=== PATIENT | male | born 1985 | race Caucasian/White ===

== ENCOUNTER 2025-05-01 12:36 | Emergency (ER) | payer OTHER, SELFPAY ==
[2025-05-01 12:38] VITALS: BP 135/97
--- NOTE | 2025-05-01 15:00 | ED.GENMED ---
History of Present Illness
General
Chief Complaint: Musculo-Skeletal Complaint
Source: patient
Exam Limitations: none
Time Seen by Provider: 05/01/25 14:24
Nursing documentation reviewed up to this point in time: agreed with
History of Present Illness
History of Present Illness:
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 He reports last week he leaned over a walking escalator to get something and leaned his left rib against the escalator ledge. He did not feel any pain at that time however since then
felt sore to the left anterior rib.. Discomfort Was improving however today he did have some increased pain with movement slight pain with deep breath. He denies her feeling short of breath. He does reports that last night his dog was leaning on
him and presses his paws directly on his rib area last night and pain increased after this.
He has not felt the need to take anything for discomfort.
He denies any leg swelling.
Phy Exam
General Physical Exam
General Presentation: no apparent distress
General age: appears stated age
General Skin: warm and dry
General Habitus: normal
General Mental: alert
General Hydration: appears well hydrated
Pulmonary Exam
Pulmonary Exam: lungs clear, no respiratory distress and other (Mildly tender to left anterior rib. No crepitus normal inspection)
Gastrointestinal Exam
Gastrointestinal Exam: non tender and soft
Neurological Exam
Neurological Exam: alert and oriented x3
Musculoskeletal Exam
Musculoskeletal Exam: full ROM
Skin Exam
Skin Exam: normal color and warm/dry
Psychiatric Exam
Psychiatric Exam: normal mood/affect
Course
Orders/Labs/Results
Orders:
Orders
05/01/25 12:37
Ribs, Left 3 View W/PA Chest CR [CR Ribs-left 3 Vw W/pa Chest] Urgent
Comment:
Reason For Exam: injury
Vital Signs
Initial and Last Documented VS:
Initial Vital Signs
Temp Pulse Resp BP Pulse Ox
98.2 F 83 16 135/97 99
05/01/25 12:38 05/01/25 12:38 05/01/25 12:38 05/01/25 12:38 05/01/25 12:38
Last Documented Vital Signs
Temp Pulse Resp BP Pulse Ox
98.2 F 83 16 135/97 99
05/01/25 12:38 05/01/25 12:38 05/01/25 12:38 05/01/25 12:38 05/01/25 15:02
Unemployment Examiner consulted with Physician
Unemployment Examiner consulted with physician?: Yes
Name of Physician Consulted: Judy
MDM/Problems Addressed
Differential Diagnosis Includes:
Not limited to rib contusion versus fracture
MDM/Problems Addressed:
patient complains of left anterior rib discomfort for the past week after leaning over something. He did not feel the exact injury at that time however felt sore. Pain slightly increased after his dog put his paws in the area yesterday. Lungs
are clear on exam he is in no acute distress no tachypnea no crepitus no bruising or abrasions abdomen soft no abdominal tenderness. mildly tender to anterior left rib region . Patient was discharged with preliminary x-ray reading of negative.
Official read does report her possible faint nondisplaced incomplete healing fracture of the anterior left ninth rib. I did call patient and speak with patient at home and to review all findings. I did discuss with patient same treatment
supportive care Motrin Tylenol deep breath etc.
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 He has no shortness of breath no signs of DVT symptoms not consistent with PE.
*Radiology
Radiology exam reviewed: radiology read reviewed
*Pulse Oximetry
SaO2: 99
Oxygen Mode of Delivery: Room air
Patient hypoxic: no
*Critical Care Note
Total Time (30-74mins, 75-104mins- exclusive of procedures): Not Applicable
ED Attending Note
-
Portions of this chart may have been created with voice recognition software.� Occasional wrong word or��sound alike� substitutions may have occurred due to the inherent limitations of voice recognition software.
Discharge Plan
Departure
Patient Disposition: Home (Routine Discharge)
Date of Disposition: 05/01/25
Time of Disposition: 15:57
Patient with high blood pressure during this ER visit?: Yes
Condition: Fair
Covid-19: Not Applicable
Discharge Problem:
Contusion of rib
Instructions: Contusion (DC)
Referrals:
NONE,* [Family Provider, Internal Medicine]
Activity Restrictions/Additional Instructions:
Ice affected area for the next 24 to 48hours as needed . You May alternate between Tylenol ibuprofen. Return if any worsening of symptoms. As discussed please do deep breathing exercises every hour. Follow-up with a family doctor as needed in
the next several days .
return if any worsening of symptoms including increased pain or shortness of breath
Interventions
Interventions:
*Risk Screen - Suicide Last Done: 05/01/25 12:40
*General Assessment Last Done: 05/01/25 14:48
*Neglect/Abuse Screening Last Done: 05/01/25 12:40
*ED- Fall Risk Assessment Last Done: 05/01/25 14:48
*ED COVID-19 Vaccine History Last Done: 05/01/25 14:48
*Nursing Disposition Last Done: 05/01/25 16:40
ED-Musculoskeletal Assessment Last Done: 05/01/25 14:48
Discharge Date and Time
Discharge Date/Time: 05/01/25 16:15
Print Language: LATVIAN
== END 2025-05-01 16:15 | disposition home or self-care (01) ==
LOC: EMR 12:36
PROVIDERS: EMERGENCY PHYSICIAN Student in an Organized Health Care Education/Training Program
DX: S20.212A Contusion of left front wall of thorax, initial encounter (principal); X58.XXXA Exposure to other specified factors, initial encounter
CPT/HCPCS: 99283; 71101

== ENCOUNTER 2025-06-27 01:46 | Inpatient (IN) | payer OTHER, SELFPAY ==
[2025-06-26 19:33] VITALS: BP 143/79
[2025-06-26 20:02] LABS: Hematocrit 42.1 % (39.0-52.0); Hemoglobin 15.0 g/dL (13.0-18.0); Mean Corp Hgb Conc. 35.6 g/dL (33.0-37.0); Mean Corpuscular Volume 89.4 fL (80.0-94.0); Nucleated Red Blood Cells % 0 % (-); Platelet Count 164 10^3/uL (130-400); Red Cell Dist. Width 12.2 % (11.5-14.5)
[2025-06-26 20:18] LABS: ALT (SGPT) 26 U/L (0-50); AST (SGOT) 33 U/L (17-59); Albumin 4.9 g/dl (3.5-5.0); Alkaline Phosphatase 47 U/L (38-126); Blood Urea Nitrogen 15 mg/dl (9-20); Calcium 9.8 mg/dl (8.4-10.2); Carbon Dioxide 28 mmol/L (22-30); Chloride 101 mmol/L (98-107); Glucose 93 mg/dl (70-99); Potassium 4.2 mmol/L (3.5-5.1); Sodium 138 mmol/L (135-145); Total Protein 8.3 g/dl (6.3-8.2); eGFR > 60.00
[2025-06-26 21:26] VITALS: BMI 24.8
[2025-06-26 21:27] VITALS: BP 142/100
[2025-06-26] MEDS: UNASYN IV (22:26)
--- NOTE | 2025-06-26 23:43 | ED.GENMED ---
History of Present Illness
General
Chief Complaint: Skin Problem
Source: patient
Exam Limitations: none
Time Seen by Provider: 06/26/25 21:09
Nursing documentation reviewed up to this point in time: agreed with
History of Present Illness
History of Present Illness:
40-year-old male presenting to the emergency department today with concerns of right arm swelling at the site of a dog bite that has been worsening throughout the day today. Claims that he was bit by a dog that was being walked by his neighbor
after his dog got into a conflict with the other dog. He notes 1 puncture wound to his right forearm and initially did not think much of it. Noticed increased swelling and redness today and went to an urgent care this morning and received
Augmentin at the time. Took 1 dose but noticed increasing redness and streaking up his arm into his armpit since then. Denies any fevers or systemic symptoms at this point. Denies any history of immunosuppression or diabetes. He did receive a
tetanus shot. He claims that the dog is apparently up-to-date with vaccinations and he is not seeking rabies vaccination at this point.
Review of Systems
Review of Systems
Allergies reviewed?: Yes
All Other Systems: ROS reviewed and negative except as documented in HPI and ROS
Phy Exam
Physical Exam
Physical Exam:
GENERAL: Alert , in no apparent distress
EYE: pupils equal and reactive
NECK: Supple, no significant adenopathy.
ENT: o/p clr, mmm.
CARDIAC: Regular rate and rhythm .
LUNGS: Clear breath sounds bilaterally, no acute respiratory distress, no wheezes/rales/rhonchi
ABDOMEN: Soft, without focal tenderness, no r/g, no cvat
NEUROLOGICAL: Alert and oriented, no focal neuro deficits
SKIN: Redness and swelling to the right forearm with streaking into the right armpit. No fluctuance or induration. Warm and dry, skin intact.
MUSCULOSKELETAL: No edema, well perfused.
PSYCH: Normal and appropriate interaction.
Course
Orders/Labs/Results
Orders:
Orders
06/26/25 19:52
Complete Blood Count/With Diff Urgent
Comprehensive Metabolic Panel Urgent
Lactic Acid Urgent
Blood Culture Urgent
[facility] Source: Blood/Venous
Specimen Description:
06/26/25 21:42
CR Forearm - Right 2 View Urgent
Comment:
Reason For Exam: dog bite
06/26/25 21:55
Ampicillin/Sulbactam 3 G [Unasyn] 3 gm 0.9% Sodium Chloride 100 ml [Nss] 100 ml IV NOW
Abnormal Lab Results
06/26/25
19:52
WBC 11.1 H 10^3/uL
(4.8-10.8)
MCH 31.8 H pg
(27.0-31.0)
Absolute Neuts (auto) 8.2 H 10^3/uL
(1.4-6.5)
Absolute Monos (auto) 0.7 H 10^3/uL
(0.1-0.6)
Lymphocytes % 17.2 L %
(20.5-51.1)
Total Protein 8.3 H g/dl
(6.3-8.2)
06/26/25 19:52
06/26/25 19:52
Vital Signs
Initial and Last Documented VS:
Initial Vital Signs
Temp Pulse Resp BP Pulse Ox
98.3 F 85 16 143/79 98
06/26/25 19:33 06/26/25 19:33 06/26/25 19:33 06/26/25 19:33 06/26/25 19:33
Last Documented Vital Signs
Temp Pulse Resp BP Pulse Ox
98.3 F 98 16 142/100 99
06/26/25 19:33 06/26/25 21:27 06/26/25 21:27 06/26/25 21:27 06/26/25 21:27
MDM/Problems Addressed
MDM/Problems Addressed:
40-year-old male presenting to the emergency department today with concerns of worsening redness swelling from the right forearm streaking up the right arm into the right armpit. This appears to be consistent with worsening infection. He did take
1 dose of Augmentin at home. Due to the rapid spread of redness and swelling plan to admit with IV antibiotics for monitoring.
*Pulse Oximetry
SaO2: 99
Oxygen Mode of Delivery: Room air
Patient hypoxic: no (99)
*Critical Care Note
Total Time (30-74mins, 75-104mins- exclusive of procedures): Not Applicable
ED Attending Note
-
Portions of this chart may have been created with voice recognition software.� Occasional wrong word or��sound alike� substitutions may have occurred due to the inherent limitations of voice recognition software.
Discharge Plan
Departure
Patient Disposition: Admit
Date of Disposition: 06/26/25
Time of Disposition: 23:45
Admit to: Med/Surg
Admit to doctor: Ivan
Presentation/result/management discussed w/ accepting MD/DO: Hospitalist
Patient with high blood pressure during this ER visit?: No
Condition: Good
Covid-19: Not Applicable
Discharge Problem:
Dog bite of right forearm with infection
Referrals:
NONE,* [Family Provider, Internal Medicine]
Interventions
Interventions:
*Risk Screen - Suicide Last Done: 06/26/25 19:35
*General Assessment Last Done: 06/26/25 21:25
*Neglect/Abuse Screening Last Done: 06/26/25 19:35
*ED- Fall Risk Assessment Last Done: 06/26/25 21:25
*ED COVID-19 Vaccine History Last Done: 06/26/25 21:25
*ED Influenza Vaccine History Last Done: 06/26/25 21:25
ED-Skin Assessment Last Done: 06/26/25 21:25
Discharge Date and Time
Print Language: [place] ISLAND[place]
--- NOTE | 2025-06-27 00:33 | HPS.HSE ---
Family Physician
-
Family Physician: * NONE
Chief Complaint
-
forearm swelling after a dog bite
History of Present Illness
Mr. Mian Lorenzo is a 40 yo man without significant past medical history presents to the ER for progressive forearm redness/streaking after a bite from neighbor's dog yesterday.
Patient was trying to prevent a fight between his dog and neighbor's when got pick. Area started out small then he noticed progressive swelling. No drainage. No fevers/chills. He went to this morning and was given Augmentin but now notices
streaking up arm beyond marked borders and so came to the ER.
No chest pain or shortness of breath. No abdominal pain. No LE swelling.
Medical History
Past Medical History
Past Medical History: Reports None
Past Surgical History: Reports None
Social History
Tobacco: Non-smoker
Family History
Family History: Not pertinent
Allergies / Home Medications
Allergies reflects when Allergies were last updated in [facility].
Home Medications with original date entered in [facility]
Allergy/Medication List:
Allergies
Allergy/AdvReac Type Severity Reaction Status Date / Time
No Known Allergies Allergy Unverified 05/01/25 12:40
Review of Systems
-
History Source: Patient
A 12 point ROS was completed and negative except as noted: Yes
Physical Exam
Vital Signs
Vital Signs
Temp Pulse Resp BP Pulse Ox
98.3 F 98 16 142/100 99
06/26/25 19:33 06/26/25 21:27 06/26/25 21:27 06/26/25 21:27 06/26/25 23:45
Physical Exam
General: No Apparent Distress and Conversant
HEENT: PERRLA
Respiratory: Clear; No Wheezes
Cardiac: S1/S2 and Regular Rhythm
GI: Soft and Non Tender
Musculoskeletal: Other (forearm with area of wound surrounded by swelling/erythema with streaking up towards axilla)
Skin: Warm and Dry; No Rash
Neuro: AO x 3
Psych: Calm
Laboratory Results
-
06/26/25 19:52
06/26/25 19:52
Laboratory Results
Lactic Acid 1.0 mmol/L (0.7-2.0) 06/26/25 19:52
Total Bilirubin 0.6 mg/dl (0.2-1.3) 06/26/25:52
AST 33 U/L (17-59) 06/26/25:52
ALT 26 U/L (0-50) 06/26/25:
Alkaline Phosphatase 47 U/L (38-126) 06/26/25:52
Data Reviewed
-
Diagnostic Radiology: Report Reviewed by me
Lab Data: Labs Reviewed by me
Impression/Plan
-
Mr. Mian Lorenzo is a 40 yo man without significant past medical history presents to the ER for progressive forearm redness/streaking after a bite from neighbor's dog yesterday. Patient went to this morning and was given Augmentin but now
notices streaking up arm.
Triage VS: T 98.3, P 85, RR 16, BP 143/79, SpO2 98%
LABS: WBC 11.1, Hg 15, PLT 164, Na 138, K+ 4.2, CO2 28, Cr 0.9, liver enzymes WNL
Forearm X-Ray: IMPRESSION: Negative radiographic evaluation of the right forearm.
Right Arm Cellulitis post Dog Bite
Leukocytosis
-progression on oral Augmentin, meets inpatient criteria for IV antibiotics
-admit to med/surg
-continue IV Unasyn
-patient received TDap vaccine at urgent care
-RUE elevation
DVT PPx Lovenox subQ
FULL CODE
[2025-06-27] MEDS: MOTRIN 600 MG PO ×2 (01:32→11:20)
[2025-06-27 01:56] VITALS: BP 123/80; BMI 24.2
[2025-06-27] MEDS: UNASYN IV ×2 (03:36→09:58)
[2025-06-27 07:00] VITALS: BP 108/69
[2025-06-27 08:01] LABS: Hematocrit 40.3 % (39.0-52.0); Hemoglobin 14.1 g/dL (13.0-18.0); Mean Corp Hgb Conc. 35.0 g/dL (33.0-37.0); Mean Corpuscular Volume 89.8 fL (80.0-94.0); Nucleated Red Blood Cells % 0 % (-); Platelet Count 149 10^3/uL (130-400); Red Cell Dist. Width 12.4 % (11.5-14.5)
[2025-06-27 08:33] LABS: Blood Urea Nitrogen 13 mg/dl (9-20); Calcium 9.3 mg/dl (8.4-10.2); Carbon Dioxide 25 mmol/L (22-30); Chloride 108 mmol/L (98-107); Estimated Creatinine Clearance > 125 ml/min; Glucose 85 mg/dl (70-99); Magnesium 2.0 mg/dl (1.6-2.3); Potassium 4.3 mmol/L (3.5-5.1); Sodium 139 mmol/L (135-145); eGFR > 60.00
--- NOTE | 2025-06-27 09:33 | W.PN.HOSP.TC ---
Addendum entered and electronically signed by Wilver Tong MD 06/27/25 17:10:
Provided strict return precautions
Transition Unasyn to Augmentin for 10 days
Read, reviewed, and agree. See same day progress note for additional details. Time spent reviewing records in EMR, med rec, consults, notes, d/w consultants, nursing, family, and CM
Original Note:
Today's Communication/Plan
-
Plan reviewed with attending
Home on augmentin
Assessment / Plan
Assessment / Plan
40yoM no PMH presented with cellulitis from a dog bite.
Pt received TDap at urgent care, states receiving a dose of TDap 2017 and possibly since then for clearance. He was started on augmentin by , took 1 dose at home. The erythema spread up his arm at home, so he presented to the ED where
they started him on unasyn and admitted him overnight. No acute overnight events. Erythema and discomfort improved. Pt denies fevers, chills, sweats. Mild pain with wrist flexion and extension, nonlimiting, ruling out concern for infection related
tenosynovitis. No pain with finger motion. Wrist erythema improved, bite on forearm scab and pus pocket formed. Not concerned for compartment syndrome due to location of bite as well as no pain with palpation, no paresthesias, pulse palpated.
AFVSS. No leukocytosis. Xray did not show evidence of osteomyelitis. Lactic 1.0. BC NGTD.
Counseled pt on any worsening or concerning symptoms to see a physician. 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 Will call pt if BC positive in the 48hr timeframe. Pt knows dog
who bit him with no concerns or signs of rabies.
Since pt onyl received 1 dose of antibiotics before presenting, this is not antibitoic failure. He is showing signs of improvement on unasyn, so we will send home with augmentin.
Anticipated Discharge: Today
Subjective/Interval History
-
Date of Service: June 27, 2025
Pt reports resolving pain with improvement overnight of the erythema. Denies fever, chills, sweats. He does complain of mild pain with wrist flexion and extension but not limiting active motion. No pain with finger movement, mild irritation with
clenching of fist. He reports that the erythema seems to have improved.
Objective Data
-
Labs:
Laboratory Results
06/27/25
07:19
WBC 7.1
Hgb 14.1
Hct 40.3
Plt Count 149
Sodium 139
Potassium 4.3
Chloride 108 H
Carbon Dioxide 25
BUN 13
Creatinine 0.6 L
Glucose 85
Calcium 9.3
Vital Signs:
Vital Signs
Temp Pulse Resp BP Pulse Ox
97.7 F 73 20 108/69 98
06/27/25 07:00 06/27/25 07:00 06/27/25 07:00 06/27/25 07:00 06/27/25 07:00
Review of Systems
-
History Source: Patient
All other systems: Reviewed and negative
Constitutional: Denies Fever, Chills or Weakness
Physical Exam
-
General: Well Developed, Well Nourished, No Apparent Distress and Comfortable
HEENT: Normocephalic, Atraumatic, Moist Mucous Membranes and [place] Conjunctivae
Respiratory: Clear to Auscultation and Non Labored Respirations
Cardiac: Regular Rhythm and S1/S2
GI: Soft, Nontender and Nondistended
Musculoskeletal: No Clubbing, No Cyanosis and No Edema
Skin: Other (r arm erythema, demarcated edema has improved from picture pt provided, line of erythema up arm to chest has reduced)
Neuro: AO x 3, No Motor Deficits and Nonfocal/Grossly Intact
Psych: Calm
--- NOTE | 2025-06-27 11:52 | CM ---
Addendum entered by Sonu Hardy 06/27/25 12:55:
Discharge order noted.
Both pt and his spouse are aware, expressed their agreement.
Per MD, Home on Augmentin.
Spouse to transport.
Original Note:
CM following re: discharge planning.
Reviewed pt's chart, met with pt and pt's spouse at bedside.
Pt is a 40 year old male, admitted with primary dx of Right Arm Cellulitis post Dog Bite.
Pt reports he lives with spouse and 3 children 2SH, 1 step to enter. pt described himself as independent in all areas [employer], drives, mar[employer].
PCP: pt stated he does not have PCP because being healthy. Pt stated he went to and from now on he will go to [facility]
Pharmacy: [facility]
D/C plan: home with anticipated no needs.
CM will follow with discharge plan updates as hospitalization progresses
[2025-06-27 13:13] VITALS: BP 110/65
--- NOTE | 2025-06-27 14:48 | W.DCSUMMARY ---
Discharge Summary
Discharge Data
Date of Admission: 06/27/25
Date of Discharge: 06/27/25
-
Pending Results: Yes
Additional Pending Results:
Blood culture
Hospital Course
40yoM no PMH presented with cellulitis from a dog bite.
Pt received TDap at urgent care, states receiving a dose of TDap 2018 and possibly since then for clearance. He was started on augmentin by , took 1 dose at home. The erythema spread up his arm at home, so he presented to the ED where
they started him on unasyn and admitted him overnight. No acute overnight events. Erythema and discomfort improved. Pt denies fevers, chills, sweats. Mild pain with wrist flexion and extension, nonlimiting, ruling out concern for infection related
tenosynovitis. No pain with finger motion. Wrist erythema improved, bite on forearm scab and pus pocket formed. Not concerned for compartment syndrome due to location of bite as well as no pain with palpation, no paresthesias, pulse palpated.
AFVSS. No leukocytosis. Xray did not show evidence of osteomyelitis. Lactic 1.0. BC NGTD.
Counseled pt on any worsening or concerning symptoms to see a physician. 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 Will call pt if BC positive in the 48hr timeframe. Pt knows dog
who bit him with no concerns or signs of rabies.
Since pt only received 1 dose of antibiotics before presenting, this is not antibiotic failure. He is showing signs of improvement on unasyn, so we will send home with augmentin.
Discharge Plan
-
Patient Disposition: Home (Routine Discharge)
Discharge Diagnosis/Procedures: cellulitis secondary to dog bite
Condition: Good
Diet: No restrictions
Activity: No restrictions
Driving Restrictions: As prior to admission
Bathing Restrictions: None
Wound Care: Clean with antiseptic regularly. Do not scrub or remove scab yourself. If scabs falls off, continue to clean with antiseptic. Keep open to air.
Referrals:
NONE,* [Family Provider, Internal Medicine]
Additional Discharge Medication Instructions: Please see a physician if you have worsening symptoms including fever, chills, worsening arm pain, or change in symptoms.
Prescriptions:
New
amoxicillin-pot clavulanate [Augmentin] 500-125 mg tablet
1 tab PO BID Qty: 14 0RF
Discharge Orders:
Discharge Patient (As Directed); Ordered 06/27/25
Ordered By: Lauren Haines
Discharge Date and Time
Discharge Date/Time: 06/27/25 14:09
Print Language: SPANISH
== END 2025-06-27 14:09 | disposition home or self-care (01) | DRG 603 ==
LOC: 2 NORTH 01:46
PROVIDERS: Emergency Medicine; ADMITTING PHYSICIAN Student in an Organized Health Care Education/Training Program; ATTENDING PHYSICIAN Hospitalist; EMERGENCY PHYSICIAN Emergency Medicine
DX: L03.113 Cellulitis of right upper limb (principal); S51.851A Open bite of right forearm, initial encounter; W54.0XXA Bitten by dog, initial encounter
CPT/HCPCS: 73090; 80048; 80053; 83605; 83735; 85025; 87040; 96365; 99284